=== PATIENT | male | born 1940 | race Caucasian/White ===

== ENCOUNTER 2017-08-25 09:26 | Emergency (ER) | payer MEDICARE ==
[~2017-08-25] VITALS: Ht 167.6 cm; Wt 71.7 kg
== END 2017-08-25 10:44 | disposition home or self-care (01) ==
LOC: ER 09:26
DX: M25.532 Pain in left wrist (principal); Z87.891 Personal history of nicotine dependence
CPT/HCPCS: 29125; 73110; 99283